=== PATIENT | female | born 1960 | race Asian ===

== ENCOUNTER → 2016-07-19 | Outpatient (CLI) | payer BC, MEDICARE ==
[~2016-07-19] MED LIST: ALBUTEROL17 GM INH; ALDACTONE PO; ASPIRIN81 MG; AUGMENTIN875 M1 PO; BUMEX PO; BUMEX2 MG PO; BYSTOLIC10 MG PO; CLARITIN10 M1 PO; COLCRYS0.6 M2 PO; COMBIVENT U/D3 M2 INH; FLEXERIL10 M1 PO; GABAPENTIN300 M2; GLUMETZA500 MG/BOT PO; HYDRALAZINE HCL25 MG PO; ISOSORBIDE DINI30 MG PO; K-DUR20 ME1 PO; LEVEMIR SUBQ; LEVEMIR100 UNITS/ SUBQ; LIPITOR PO; LIPITOR40 MG; LISINOPRIL PO; LO-DOSE ASPIRIN81 M1 PO; METHIMAZOLE10 MG PO; NOVOLOG100 U/ML SUBQ; PERCOCET 5/321 UDTAB PO; PHENERGAN25 MG PO; PLAVIX PO; ROBITUSSIN100 MG/51 PO; TOUJEO SOL300 UNIT/1 SUBQ; TYLENOL325 MG/10. PO; VIAGRA PO; VICODIN PO; VITAMIN D50000 UNIT PO; VOLTAREN75 MG PO; VYTORIN PO; ZYLOPRIM100 MG PO; [UNRECOGNIZED DRUG - REMARK]
--- NOTE | ~2016-07-19 | US136 ---
[facility] A Service of [facility] RADIOLOGY TEXT RESULTS PATIENT: ANITHA PATEL LOCATION: CNIV : 56 UNIT #: [id number] AGE: [address]: Gurwinder Mendez MD SEX: F ORDER DR: [id number] [facility] [address] [place]. [place], [place] [address] [id number] O MR#: [id number] Acc #: [id number] NAME: ANITHA PATEL. : 1960 SEX: F STUDY DATE/TIME: 07/19/2016 12:12 UNIT: CNIV ROOM: STUDY DESCRIPTION: U/L [facility] [employer] Bil Attending Physician: Gurwinder Mendez M.D. Referring Physician: Gurwinder Mendez M.D. Ordering Physician: Gurwinder Mendez M.D. Primary Care Physician: Rebecca Park M.D. MEDICAL IMAGING REPORT This report is preliminary unless electronic signature is present EXAM Ankle-brachial indices 07/19/2016 HISTORY Leg numbness. FINDINGS The right brachial pressure is 178, left brachial pressure 198. The right dorsalis pedis pressure is 215, posterior tibial greater 250, and toe 167. Accurate ankle-brachial index on the right cannot be calculated due to incompressibility of the vessels. The left dorsalis pedis pressure is greater than 250, posterior tibial greater than 250, and toe 172. Accurate ankle-brachial index on the left cannot be calculated due to incompressibility of the vessels. Doppler waveform analysis indicates a triphasic signal in the posterior tibial and dorsalis pedis arteries bilaterally. Pulse volume recording tracing indicate a good amplitude signal at the ankle and digital level on both sides. 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 Accurate ankle-brachial indices cannot be calculated, but relatively normal perfusion to both legs is suspected based on waveform analysis and toe pressures. Dictated by... Servando Cox M.D. THIS IS AN ELECTRONICALLY VERIFIED REPORT [facility] A Service of [facility] RADIOLOGY TEXT RESULTS PATIENT: ANITHA PATEL LOCATION: [facility] : 56 UNIT #: [id number] AGE: [address]: Gurwinder Mendez MD SEX: F ORDER DR: Servando Cox M.D. at 07/20/2016 8:25 AM Ronna TD: 07/19/2016 14:31 JOB #: [id number] MEDICAL IMAGING REPORT Page 1 of 1 COPY
== END | disposition home or self-care (01) ==
LOC: CNIV 11:52
DX: R09.89 Other specified symptoms and signs involving the circulatory and respiratory systems (principal); R20.0 Anesthesia of skin
CPT/HCPCS: 93922

== ENCOUNTER 2016-07-30 08:17 | Emergency (ER) | payer BC, MEDICARE ==
--- NOTE | ~2016-07-30 | EKG ---
PATIENT: ANITHA PATEL UNIT #: [id number] Ventricular Rate: 81 BPM Atrial Rate: 81 BPM P-R Interval: 148 ms QRS Duration: 78 ms Q-T Interval: 382 ms QTC Calculation(Bezet): 443 ms P [place]: 36 degrees Calculated R [place]: 31 degrees Calculated T [place]: -17 degrees Diagnosis Line: Normal sinus rhythm Diagnosis Line: Nonspecific T wave abnormality Diagnosis Line: Abnormal ECG Diagnosis Line: When compared with ECG of 13-APR-2016 15:25, Diagnosis Line: No significant change was found Diagnosis Line: Confirmed by JUANPABLO POLLARD MD ([id number]) on Diagnosis Line: 08/03/2016 7:17:10 AM INTERPRETING NATHALIA MEYERS
--- NOTE | ~2016-07-30 | CT57 ---
[facility]. [facility] A Service of [facility] RADIOLOGY TEXT RESULTS PATIENT: ANITHA PATEL LOCATION: SED : 56 UNIT #: [id number] AGE: [address]: Abilio Sparks MD SEX: F ORDER DR: [id number] [place] [id number] E MR#: [id number] Acc #: [id number] NAME: ANITHA PATEL. : 1960 SEX: F STUDY DATE/TIME: 07/30/2016 9:28 UNIT: SED ROOM: STUDY DESCRIPTION: CT Chest Wo Cont Attending Physician: Abilio Sparks M.D. Ordering Physician: Abilio Sparks M.D. Primary Care Physician: Rebecca Park M.D. MEDICAL IMAGING REPORT This report is preliminary unless electronic signature is present. EXAM CT chest without contrast, 07/30/2016 HISTORY 56-year-old female with shortness of air and fever for [address] chest 04/13/2016 TECHNIQUE Helical scan performed through the chest without IV contrast. Coronal and sagittal reformatted images. This CT exam was performed with one or more of the following radiation dose reduction techniques: automatic exposure control, adjustment of mA and/or kV according to patient size, and iterative reconstruction. FINDINGS Thoracic aorta normal in course and caliber. Coronary artery calcifications. Mild cardiomegaly. No pericardial effusion. No pleural effusions. No pneumothorax. There are bilateral perihilar infiltrates, most concerning for early pneumonia. Recommend followup to resolution. Incidental scanning through the upper abdomen demonstrates cholecystectomy. No acute bony abnormality. IMPRESSION 1. Mild bilateral perihilar infiltrates, most concerning for pneumonia. Recommend followup to resolution. 2. Cardiomegaly. [facility] A Service [facility] RADIOLOGY TEXT RESULTS PATIENT: ANITHA PATEL LOCATION: SED : 56 UNIT #: [id number] AGE: [address]: Abilio Sparks MD SEX: F ORDER DR: Dictated by... Ashwin Rodgers M.D. THIS IS AN ELECTRONICALLY VERIFIED REPORT Ashwin Rodgers M.D. at 07/31/2016 8:43 AM LORI/misty TD: 07/30/2016 21:07 JOB #: [id number] MEDICAL IMAGING REPORT Page 1 of 1
--- NOTE | ~2016-07-30 | CR72 ---
[facility]. [facility] A Service of [facility] RADIOLOGY TEXT RESULTS PATIENT: ANITHA PATEL LOCATION: SED : 56 UNIT #: [id number] AGE: [address]: Abilio Sparks MD SEX: F ORDER DR: [id number] [address] [address] [id number] E MR#: [id number] Acc #: [id number] NAME: ANITHA PATEL. : 1960 SEX: F STUDY DATE/TIME: 07/30/2016 8:26 UNIT: SED ROOM: STUDY DESCRIPTION: CR Chest Single View Portable Attending Physician: Abilio Sparks M.D. Ordering Physician: Abilio Sparks M.D. Primary Care Physician: Rebecca Park M.D. MEDICAL IMAGING REPORT This report is preliminary unless electronic signature is present. EXAM Portable chest 07/30/2016 HISTORY Shortness of air and cough beginning 3 days ago. COMPARISON STUDIES 04/22/2016 FINDINGS Frontal chest is limited by body habitus. Allowing for this, the lungs appear grossly clear. No pneumothorax. Heart size mildly enlarged. The mediastinum and pulmonary vasculature grossly unremarkable. IMPRESSION Examination is limited by body habitus. Allowing for this, the lungs appear grossly clear. Cardiomegaly is stable. Dictated by... Ashwin Rodgers M.D. THIS IS AN ELECTRONICALLY VERIFIED REPORT Ashwin Rodgers M.D. at 07/31/2016 8:42 AM LORI/ramon TD: 07/30/2016 20:42 JOB #: [id number] MEDICAL IMAGING REPORT Page 1 of 1
[2016-07-30 08:48] LABS: BASOPHIL# 0.1 X10e3 (0-0.3); BASOPHIL% 0.4 % (0-2.5); EOSINOPHIL# 0.2 X10e3 (0-0.7); EOSINOPHIL% 1.4 % (0.0-7.0); HEMATOCRIT 35.9 % (35.0-45.0); HEMOGLOBIN 11.8 gm/dL (12.0-16.0); LYMPHOCYTE# 1.8 X10e3 (1.0-3.5); MEAN CELL VOLUME 89.9 FL (83-96); MEAN CORPUSCULAR HEMOGLOBIN 29.6 PG (28-34); MEAN CORPUSCULAR HGB CONC 32.9 g/dL (30-36); MONOCYTE# 1.7 X10e3 (0-1.0); MONOCYTE% 11.1 % (3.0-12.0); NEUTROPHIL# 11.4 X10e3 (1.5-7.1); NEUTROPHIL% 75.1 % (40-75); PLATELET COUNT 213 X10e3 (140-420); RED BLOOD COUNT 3.99 X10e (3.90-5.30); RED CELL DISTRIBUTION WIDTH 13.8 % (11.0-15.5); WHITE BLOOD COUNT 15.1 X10e3 (4.0-10.5)
[2016-07-30 08:52] LABS: DIFF IND NO
[2016-07-30 08:57] LABS: POC - CKMB 2.4 ng/mL (0.0-7.9); POC - TROPONIN <0.05 ng/mL (<=0.05)
[2016-07-30 08:59] LABS: INR 1.1; PROTHROMBIN TIME (PATIENT) 12.1 SECONDS (9.5-12.4)
[2016-07-30 09:06] LABS: PARTIAL THROMBOPLASTIN TIME 27.7 SECONDS (25.6-38.1)
[2016-07-30 09:08] LABS: INFLUENZA A NEG (NEG); INFLUENZA B NEG (NEG)
[2016-07-30 09:20] LABS: ALBUMIN SERUM 3.3 g/dL (3.5-5.0); BILIRUBIN, DIRECT 0.2 mg/dL (0.0-0.2); BILIRUBIN,INDIRECT 0.6 mg/dL (0.0-0.9); BILIRUBIN,TOTAL 0.8 mg/dL (0.2-2.0); BUN/CREATININE RATIO 26.19; CALCIUM SERUM 8.2 mg/dL (8.4-10.2); CREATININE SERUM 2.1 mg/dL (0.6-1.4); GLOM FILT RATE Estimated 25.3 mL/min (>60); PROTEIN TOTAL SERUM 7.7 g/dL (6.0-8.3)
== END 2016-07-30 13:20 ==
LOC: SED 08:17
PROVIDERS: Emergency Medicine
DX: J84.9 Interstitial pulmonary disease, unspecified (principal); E86.0 Dehydration; E11.65 Type 2 diabetes mellitus with hyperglycemia; I11.0 Hypertensive heart disease with heart failure; I50.9 Heart failure, unspecified; J45.909 Unspecified asthma, uncomplicated; Z79.4 Long term (current) use of insulin; Z79.899 Other long term (current) drug therapy
CPT/HCPCS: 36415; 71010; 71250; 80048; 80076; 82553; 83605; 83880; 84484; 85025; 85610; 85730; 87040; 87804; 93005; 94640; 96365; 96372; 99285; J0696